=== PATIENT | female | born 1975 | race African-American/Black ===

== ENCOUNTER 2019-03-26 11:25 | Emergency (ER) | payer SELFPAY ==
[~2019-03-26] VITALS: Ht 165.1 cm; Wt 79.2 kg
[2019-03-26 12:02] LABS: BASO % 0.6 % (0.0-1.0); EOS % 0.8 % (0.0-3.0); HEMATOCRIT 32.6 % (36.0-47.0); HEMOGLOBIN 9.9 g/dl (12.0-15.5); LYMPH # 1.5 10^3/uL (1.5-4.5); LYMPH % 29.4 % (24.0-44.0); MEAN CORPUSCULAR HGB CONC 30.4 g/dl (32.0-36.5); MEAN CORPUSCULAR VOLUME 79.1 fl (80.0-96.0); MONO # 0.6 10^3/uL (0.0-0.8); MONO % 12.1 % (0.0-5.0); NEUTROPHILS # 2.9 10^3/uL (1.8-7.7); NEUTROPHILS % 56.7 % (36.0-66.0); PLATELET COUNT, AUTOMATED 252 10^3/uL (150-450); RED BLOOD COUNT 4.12 10^6/uL (4.00-5.40)
[2019-03-26 12:35] LABS: HCG, SERUM QUALITATIVE NEGATIVE (NEGATIVE)
[2019-03-26 12:40] LABS: ALBUMIN 3.5 GM/DL (3.2-5.2); ALT/SGPT 18 U/L (12-78); BILIRUBIN,DIRECT < 0.1 MG/DL (0.0-0.2); BILIRUBIN,TOTAL 0.2 MG/DL (0.2-1.0); BLOOD UREA NITROGEN 16 MG/DL (7-18); CALCIUM LEVEL 9.1 MG/DL (8.5-10.1); CARBON DIOXIDE LEVEL 26 MEQ/L (21-32); CHLORIDE LEVEL 108 MEQ/L (98-107); CK-MB VALUE MASS < 1.0 NG/ML (<3.6); CPK CREATINE PHOSPHOKINASE 115 U/L (26-192); CREATININE FOR GFR 1.12 MG/DL (0.55-1.30); GLOMERULAR FILTRATION RATE 56.8 (>58); GLUCOSE, FASTING 80 MG/DL (70-100); LIPASE 146 U/L (73-393); MB/CK RELATIVE INDEX 0.87 (< OR =4); NT-PRO BNP 1697 PG/ML (<125); POTASSIUM SERUM 3.6 MEQ/L (3.5-5.1); SODIUM LEVEL 143 MEQ/L (136-145); TROPONIN I < 0.02 NG/ML (< 0.10)
--- NOTE | 2019-03-26 12:56 | REP ---
Clinical: Headache and history of hypertension . Comparison: None . Findings: The ventricles, sulci, and cisterns are normal in position and appearance. Coelho-white differentiation is maintained. No acute intracranial hemorrhage, mass/mass effect, pathology or trauma/injury. No evidence for acute infarction. No extra-axial fluid collection. Calvarium is intact. Paranasal sinuses and mastoid air cells are clear. Impression: Normal noncontrast head CT. No evidence for acute intracranial pathology or trauma/injury. Electronically Signed by Bhupendra Markham MD 03/26/2019 12:48 P
[2019-03-26] MEDS ORDERED: LABETALOL HCL 100 MG/20 ML VIAL IV STA (12:57)
[2019-03-26] MEDS ORDERED: ISOVUE-370 76% 100ML VIAL (Q9967) As Ordered ONE (13:01)
--- NOTE | 2019-03-26 13:04 | REP ---
Clinical: Chest pain. Findings: Mild cardiomegaly cannot be excluded due to portable technique. The lung montero demonstrate mildly coarsened perihilar and basilar markings which may reflect bronchitis or chronic reactive airway disease. No focal consolidation. No effusion. No pneumothorax. Skeletal structures intact. Impression: Cannot exclude mild bronchitis. Electronically Signed by Bhupendra Markham MD 03/26/2019 12:56 P
--- NOTE | 2019-03-26 13:50 | REP ---
Clinical: Chest pain. Rule out aortic dissection. Technique: Axial contrast enhanced images from the thoracic inlet to the upper abdomen using aortic angiographic technique with 100 ml Isovue 370 intravenous contrast material. Multiplanar and MIP re-formations obtained. Findings: Thoracic aorta is normal in appearance and caliber without aortic aneurysm or dissection. The heart and pericardium are grossly normal. The pulmonary vasculature is normal in appearance and without evidence for pulmonary arterial hypertension. Pulmonary emboli cannot definitively be excluded based on current examination. The bilateral lung montero are essentially clear and without consolidation, effusion, or pneumothorax. No obvious adenopathy. Surrounding musculoskeletal structures are intact. Impression: 1. Normal thoracic aorta without aortic aneurysm or dissection. 2. No obvious mediastinal or pleuroparenchymal process. Electronically Signed by Bhupendra Markham MD 03/26/2019 01:41 P
[2019-03-26] MEDS ORDERED: LOSARTAN 50 MG TAB PO ONE (14:00)
[2019-03-26] MEDS ORDERED: CHLORTHALIDONE 12.5MG PER 1/2 TABLET PO ONE (14:00)
[2019-03-26] MEDS ORDERED: POTASSIUM CHLORIDE 10 MEQ SR TABLET PO ONE (14:00)
[2019-03-26] MEDS ORDERED: CHLO125TA PO (15:29)
[2019-03-26] MEDS ORDERED: LOSA50TA88 PO (15:29)
[2019-03-26 15:30] VITALS: BP 165/83
[2019-03-26] MEDS ORDERED: POTA20TA6 PO (15:30)
--- NOTE | 2019-03-26 22:28 | ECGEPIP ---
[facility] - ED Test Date: 2019-03-26 Pat Name: BETO VERGARA Department: Room: - Gender: Female Psychiatric Specialist: darby : 1975 Requested By: Heidi Gardner Order Number: [id number] Reading MD: Fabien Thompson Measurements Intervals [place] Rate: 94 P: 62 MO: 127 QRS: -11 QRSD: 90 T: 89 QT: 352 QTc: 441 Interpretive Statements SINUS RHYTHM LEFT ATRIAL ENLARGEMENT POSSIBLE LEFT VENTRICULAR HYPERTROPHY NONSPECIFIC T-WAVE ABNORMALITY NO PRIORS FOR COMPARISON Electronically Signed on 03-26-2019 22:28:21 EDT by Fabien Thompson
== END 2019-03-26 16:03 | disposition home or self-care (01) ==
LOC: M ED 11:25
DX: I10 Essential (primary) hypertension (principal); R06.02 Shortness of breath; R07.9 Chest pain, unspecified; R51 Headache; R42 Dizziness and giddiness; Z82.49 Family history of ischemic heart disease and other diseases of the circulatory system
CPT/HCPCS: 70450; 71045; 71275; 80048; 80076; 82550; 82553; 83690; 83880; 84443; 84484; 84703; 85025; 93005; 93041; 94760; 96374; 99285; Q9967

== ENCOUNTER → 2023-12-30 | Outpatient (CLI) | payer OTHER ==
[~2023-12-30] MED LIST: CHLO125TA PO; LOSA50TA28 PO; POTA-151 PO
[2023-12-30 14:16] LABS: BASO % 0.3 % (0.0-1.0); EOS % 0.1 % (0.0-3.0); HEMATOCRIT 37.5 % (36.0-47.0); HEMOGLOBIN 11.5 g/dl (12.0-15.5); LYMPH # 1.2 10^3/uL (1.5-5.0); LYMPH % 15.7 % (24.0-44.0); MEAN CORPUSCULAR HEMOGLOBIN 26.1 pg (27.0-33.0); MEAN CORPUSCULAR HGB CONC 30.7 g/dl (32.0-36.5); MONO # 0.5 10^3/uL (0.0-0.8); MONO % 6.5 % (2.0-8.0); NEUTROPHILS # 5.9 10^3/uL (1.5-8.5); NEUTROPHILS % 76.9 % (36.0-66.0); PLATELET COUNT, AUTOMATED 283 10^3/uL (150-450); RED BLOOD COUNT 4.41 10^6/uL (4.00-5.40); WHITE BLOOD COUNT 7.7 10^3/uL (4.0-10.0)
[2023-12-30 14:20] LABS: BLOOD UREA NITROGEN 21 MG/DL (9-23); CARBON DIOXIDE LEVEL 28 MMOL/L (20-31); CHLORIDE LEVEL 104 MMOL/L (98-107); CREATININE FOR GFR 0.62 MG/DL (0.55-1.30); GLOMERULAR FILTRATION RATE > 60.0 (>58); GLUCOSE, FASTING 94 MG/DL (60-100); POTASSIUM SERUM 3.6 MMOL/L (3.5-5.1); SODIUM LEVEL 142 MMOL/L (136-145)
== END ==
LOC: M WUC 09:56
PROVIDERS: ATTEND Family Medicine
DX: D50.9 Iron deficiency anemia, unspecified (principal); E87.6 Hypokalemia